=== PATIENT | female | born 2000 | race Caucasian/White ===

== ENCOUNTER 2020-05-06 16:04 | Outpatient (CLI) | payer OTHER, SELFPAY ==
[2020-05-06 17:06] LABS: Alanine Aminotransferase 18 U/L (4-35); Albumin Level 4.2 g/dL (3.5-5.1); Alkaline Phosphatase 58 U/L (38-126); Aspartate Amino Transferase 22 U/L (14-36); Bilirubin,Total 0.3 mg/dL (0.2-1.3); Blood Urea Nitrogen 14 mg/dL (7-17); Calcium 9.1 mg/dL (8.4-10.2); Carbon Dioxide 25 mmol/L (22-30); Estimated Glomerular Filt Rate > 60; Glucose 70 mg/dL (65-105); Phosphorus 3.7 mg/dL (2.5-4.5); Potassium 3.5 mmol/L (3.4-5.0); Sodium 140 mmol/L (137-145)
[2020-05-06 17:20] LABS: Anion Gap 8 mmol/L (8-16); Chloride 107 mmol/L (98-107)
== END 2020-05-06 16:05 | disposition home or self-care (01) ==
LOC: ANHLAB 16:08
PROVIDERS: PCP Pediatrics
DX: G43.401 Hemiplegic migraine, not intractable, with status migrainosus (principal)
CPT/HCPCS: 36415; 80053; 84100

== ENCOUNTER 2022-05-11 12:41 | Emergency (ER) | payer BC, SELFPAY ==
[2022-05-11 13:47] VITALS: BP 122/66; PULSE 82; RESP 16; TEMP 36.6; O2SAT 100
--- NOTE | 2022-05-11 14:36 | ED.EAR ---
HPI - Ear Problem General Chief complaint: Ear Stated complaint: lt ear hearing loss Time Seen by Provider: 05/11/22 14:36 Source: patient and RN notes reviewed Mode of arrival: ambulatory Limitations: no limitations History of Present Illness HPI Narrative: 21-year-old female presents with concern for hearing loss in her left ear. She reports she had an ear piercing in that ear that was infected. She reports the outer ear is red and swollen. She denies any recent cold symptoms. She denies drainage from the ear. She denies fever, aches, chills, sweats MD Complaint: decreased hearing Related Data Allergies Allergy/AdvReac Type Severity Reaction Status Date / Time Nut Tree Allergy Unknown Itching Uncoded 05/11/22 14:23 Review of Systems Review of Systems: CONSTITUTIONAL: Denies malaise, chills, sweats, or fever. EYES: Denies visual changes, redness, or discharge. ENT: Denies rhinorrhea, congestion, sinus pain, and sore throat. Reports decreased hearing in the left ear CARDIOVASCULAR: Denies chest pain, palpitations, or edema. RESPIRATORY: Denies cough. Denies dyspnea. GASTROINTESTINAL: Denies abdominal pain, nausea, vomiting, diarrhea SKIN: Swelling, redness of that left outer around ear piercing MUSCULOSKELETAL: Denies myalgia. NEUROLOGIC: Denies headache. All systems reviewed & are unremarkable except as noted in HPI and below PMFSH Comments At time of signature, agree with nursing past medical, surgical, social and family history. There is no relevant family history pertinent to the presenting complaint Exam Narrative: GENERAL: Well-appearing, well-nourished, and in no acute distress. HEAD: Normocephalic EYES: PERRLA, conjunctivae clear ENT: Nares clear. Mucous membranes moist. Right TM pearly ferrera with sharp light reflex mild left otitis effusion; no tragal tenderness. Oropharynx not erythematous without lesions. Tonsils not enlarged and without exudate, no drooling, no hoarseness, no trismus, uvula midline. NECK: Supple. No lymphadenopathy CHEST: Clear to auscultation, breath sounds equal. No wheezing, rhonchi, rales, or stridor. No respiratory distress, speaks in full sentences. HEART: Regular rate and rhythm. No murmur heard. SKIN: Warm, dry, no rash. Mild Erythema, mild edema and induration noted to the left outer ear surrounding a piercing NEURO: Alert and oriented x3. PSYCH: Normal mood and affect Course Course Emergency Course: Patient is aware of diagnosis, understands and agrees to treatment plan. Anticipatory guidance given. Patient agrees to follow-up as directed and is aware of reasons to seek care at the emergency department. Portions of this record may have been created with voice recognition software Level of Care: Express Care Visit Vital Signs Vital signs: Vital Signs Temperature 97.9 F 05/11/22 13:47 Pulse Rate 82 05/11/22 13:47 Respiratory Rate 16 05/11/22 13:47 Blood Pressure 122/66 05/11/22 13:47 Pulse Oximetry 100 05/11/22 13:47 Temperature 97.9 F 05/11/22 13:47 Pulse Rate 82 05/11/22 13:47 Respiratory Rate 16 05/11/22 13:47 Blood Pressure 122/66 05/11/22 13:47 Pulse Oximetry 100 05/11/22 13:47 Reviewed. Medical Decision Making MDM Narrative Medical decision making narrative: Exam findings and imaging show no acute concerns or changes; patient is non-toxic appearing and is in no distress. Patient is appropriate for outpatient treatment and follow-up. Vital Signs Vital Signs: Vital Signs Temperature 97.9 F 05/11/22 13:47 Pulse Rate 82 05/11/22 13:47 Respiratory Rate 16 05/11/22 13:47 Blood Pressure 122/66 05/11/22 13:47 Pulse Oximetry 100 05/11/22 13:47 Temperature 97.9 F 05/11/22 13:47 Pulse Rate 82 05/11/22 13:47 Respiratory Rate 16 05/11/22 13:47 Blood Pressure 122/66 05/11/22 13:47 Pulse Oximetry 100 05/11/22 13:47 Critical Care Time Critical Care Time Critical Care Time: No Discharg
== END 2022-05-11 14:50 | disposition home or self-care (01) ==
PROVIDERS: Emergency Provider Nurse Practitioner; PCP Nurse Practitioner Adult Health
DX: H95.89 Other postprocedural complications and disorders of the ear and mastoid process, not elsewhere classified (principal); H60-H95 Diseases of the ear and mastoid process
CPT/HCPCS: 99213; G0463